=== PATIENT | female | born 2000 | race Two or more races ===

== ENCOUNTER 2023-07-13 11:38 | Outpatient (OUT) | payer OTHER, SELFPAY ==
--- NOTE | 2023-07-13 11:49 | XR_ITS ---
The [address] [address] Patient Name: HARMONY PA MRN: [id number] date: 2000 Sex: F Assigned Patient Location: [facility] Current Patient Location: [facility] Accession/Order Number: [id number] Exam Date: 07/13/2023 11:55 Report Date: 07/13/2023 15:13 At the request of: AGATHA STEEL Procedure: XR knee RT 4V EXAM: XR knee RT 4V 07/13/2023. FINDINGS: AP, lateral, oblique, and sunrise type views were obtained. HISTORY: Right Knee Contusion COMPARISON: None. XR/XR knee RT 4V IMPRESSION: 1. The alignment is satisfactory and joint spaces are well-maintained. There is no obvious effusion, pathologic calcification, or radiopaque foreign body. 2. No acute fracture or dislocation noted. Electronically authenticated by: ISSAC HOWE Date: 07/13/2023 15:13
== END 2023-07-13 11:39 | disposition home or self-care (01) ==
LOC: RAD 11:44
PROVIDERS: Visit Provider Nurse Practitioner Family
DX: S80.01XA Contusion of right knee, initial encounter (principal)
CPT/HCPCS: 73564

== ENCOUNTER 2023-08-01 10:41 | Emergency (ER) | payer OTHER, SELFPAY ==
[2023-08-01 10:44] VITALS: BP 118/81; PULSE 88; TEMP 36.5; O2SAT 100; BMI 25.3
--- NOTE | 2023-08-01 10:51 | ED_ITS ---
HPI - Extremity Problem General Chief complaint: Extremity Problem, Nontraumatic Stated complaint: UPPER EXTREMITY PAIN Time Seen by Provider: 08/01/23 10:49 Source: patient Mode of arrival: walk-in History of Present Illness HPI Narrative: 22-year-old female presents for pain in her left thumb. She gives no history of injury but noted some redness at the base of her nail. She states she does not bite her nails. The pain is moderate and continuous. Related Data Home Medications ?Medication ?Instructions ?Recorded ?Confirmed L norgest/E estradiol-E estrad 1 tab PO DAILY 08/01/23 08/01/23 0.15 mg-30 mcg (84)/10 mcg(7) tabs,3mos (Jaimiess) Previous Rx's ?Medication ?Instructions ?Recorded cephalexin 500 mg capsule 500 mg PO QID 10 days #40 caps 08/01/23 sulfamethoxazole 800 1 tab PO BID 10 days #20 tabs 08/01/23 mg-trimethoprim 160 mg tablet (Bactrim DS) Allergies Allergy/AdvReac Type Severity Reaction Status Date / Time No Known Drug Allergies Allergy Verified 08/01/23 10:46 Review of Systems ROS Narrative A ten point review of systems is negative except as noted above. Exam Narrative Exam Narrative: Nurses note and vital signs reviewed and patient is not hypoxic. General: The patient appears well and in no apparent distress. Patient is resting comfortably on cart. Skin: Warm, dry, no pallor noted. There is no rash noted. Head: Normocephalic, atraumatic Eye: Normal conjunctiva, no drainage Ears, Nose, Mouth, and Throat: oral mucosa is moist. Nares patent. Cardiovascular: Regular Rate and Rhythm Respiratory: Patient is in no distress, no accessory muscle use, lungs are clear to auscultation, no wheezing, rales or rhonchi Back: non-tender GI: Soft and nontender Musculoskeletal: No erythema or swelling to the finger pad. She has erythema at the eponychium area but there is no discrete paronychia. No fluctuance. Neurological: A&O, normal speech Psychiatric: Cooperative Constitutional Vital Signs, click to edit/add: Last Vital Signs Temp 97.7 F 08/01/23 10:44 Pulse 88 08/01/23 10:44 Resp 16 08/01/23 10:44 BP 118/81 08/01/23 10:44 Pulse Ox 100 08/01/23 10:44 O2 Del Method Room Air 08/01/23 10:44 Course Vital Signs Vital signs: Vital Signs Temperature 97.7 F 08/01/23 10:44 Pulse Rate 88 08/01/23 10:44 Respiratory Rate 16 08/01/23 10:44 Blood Pressure 118/81 08/01/23 10:44 Pulse Oximetry 100 08/01/23 10:44 Oxygen Delivery Method Room Air 08/01/23 10:44 Temperature 97.7 F 08/01/23 10:44 Pulse Rate 88 08/01/23 10:44 Respiratory Rate 16 08/01/23 10:44 Blood Pressure 118/81 08/01/23 10:44 Pulse Oximetry 100 08/01/23 10:44 Oxygen Delivery Method Room Air 08/01/23 10:44 MDM - Extremity (Nontraumatic) MDM Narrative Medical decision making narrative: X-ray per radiologist shows no acute findings. No evidence of felon or paronychia on exam and she is prescribed Bactrim and Keflex. Treatment diagnosis and follow-up were discussed with the patient. Differential Diagnosis Differential diagnosis: Likely other (Felon, paronychia, cellulitis) Imaging Data Hand x-ray: Radiologist's impression: ITS Impressions Hand X-Ray 08/01/23 10:51 IMPRESSION: Left hand study fails to demonstrate obvious acute bony abnormality. Mild soft tissue swelling of the thumb. Follow-up as needed. Electronically authenticated by: UMBERTO CONNER Date: 08/01/2023 11:49 Discharge Plan Discharge Stand Alone Forms: Portal Instructions Chief Complaint: Extremity Problem, Nontraumatic Clinical Impression: Cellulitis Patient Disposition: Home, Self-Care Time of Disposition Decision: 12:04 Condition: Good Mode of Transportation: Private Vehicle Prescriptions / Home Meds: New sulfamethoxazole-trimethoprim [Bactrim DS] 800-160 mg tablet 1 tab PO BID 10 Days Qty: 20 0RF cephalexin 500 mg capsule 500 mg PO QID 10 Days Qty: 40 0RF No Action L norgest/e.estradiol-e.estrad [Jaimiess] 0.15 mg-30 mcg (84)/10 mcg (7) tablets,dose pack,3 month 1 tab PO DAILY Print Language: Armenian Instructions: Cellulitis (ED), Warm Compress or Soak (ED) Referrals: Physician,Non-Staff, MD [Primary Care Provider] - 1 week
--- NOTE | 2023-08-01 10:51 | XR_ITS ---
The [place] [id number] Patient Name: HARMONY PA MRN: [id number] date: 2000 Sex: F Assigned Patient Location: ER Current Patient Location: ER Accession/Order Number: [id number] Exam Date: 08/01/2023 11:20 Report Date: 08/01/2023 11:49 At the request of: BRENT JIMENEZ Procedure: XR hand LT min 3V EXAM: XR hand LT min 3V HISTORY: Attention thumb, atraumatic pain COMPARISON: None TECHNIQUE: 3 views of the left hand were obtained. FINDINGS: No definite acute fracture or dislocation. Focal area of sclerosis in the third metacarpal head compatible with a bone island. Mild soft tissue swelling of the thumb. No obvious opaque foreign body. XR/XR hand LT min 3V IMPRESSION: Left hand study fails to demonstrate obvious acute bony abnormality. Mild soft tissue swelling of the thumb. Follow-up as needed. Electronically authenticated by: UMBERTO CONNER Date: 08/01/2023 11:49
== END 2023-08-01 12:16 | disposition home or self-care (01) ==
PROVIDERS: Emergency Provider Emergency Medicine
DX: L03.012 Cellulitis of left finger (principal); Z79.3 Long term (current) use of hormonal contraceptives
CPT/HCPCS: 73130; 99283

== ENCOUNTER → 2023-09-19 16:01 | Emergency (ER) | payer OTHER, SELFPAY | END | disposition left against medical advice (07) | PROVIDERS: Emergency Provider Emergency Medicine Emergency Medical Services | DX: Z53.21 Procedure and treatment not carried out due to patient leaving prior to being seen by health care provider (principal) ==

== ENCOUNTER 2024-10-24 00:13 | Emergency (ER) | payer OTHER, SELFPAY ==
--- OUTSIDE RECORDS SUMMARY | 2023-04-29 06:00 | XMS_ITS | Continuity of Care Document ---
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 Phone Lian KAREN, Garo Unavailable Unavailable Allergies, Adverse Reactions, Alerts Substance Reaction Status Criticality No Known Allergies Active No Inform ation Procedures Procedure Date Panoramic Film Limited Oral Eval Oral Hygiene Instruction Advance Directives Directive Yes / No Effective Date File Name No Information Encounters Encounter Description Practice Location Reason(s) For Visit Diagnoses Date Provider Providers Copied on Encounter [facility], [address] [place], [place], [id number], [place] tel:[phone] [facility] ER (chief complaint) Encounter for screening for dental disorders Lian JONES Garo. [address] [place], [place], [id number], [place]. tel:[phone] Family History Family Member Type Diagnosis Age At Onset No Information Payers Payer name Insurance type Covered democrat ID Niamat nitzarussell(s) Self Pay Indigent 09 [id number] Social History Type Description Quantity Date Captured Comments Alcohol Use Details Unknown Caffeine Use Details Unknown Tobacco Use Status Light cigarette smok er (1-9 cigs/day) Smoking Status Light tobacco smoker Smoking Tobacco Use Details Cigarette: No Details Available Cigarette: 5 Cigarettes per day Sex Female Sexual Orientation Straight or heterosexual Gender Identity Female Vital Signs Date / Time: Height Weight BMI Pulse Rate Blood Pressure Temperature Respiratory Rate Body Surface Area Head Circumference Head Circ. Percentile Wt./Eliel. Percentile BMI percentile Pulse Ox Inhaled Ox 10:25 AM 106 /min 124/83 mm[Hg] 97.50 F Chief Complaint And Reason For Visit From encounter dated '04/29/2023 10:00'. ER (chief complaint) Reason For Referral Reason For Referral No Information Plan Of Treatment Date Type Action Status Goal Tdap. Due on due Goal Hepatitis C screening. Due o n due Goal Tdap Vaccine. Due on 2023 due Goal Influenza vaccine. Due on due Goal PRAPARE ASSESSMENT. Due on due Goal PAP. Due on due Goal RLP. Due on due Goal Depression screening. Due on due Goal Unhealthy drug use screening . Due on due History Of Present Illness Encounter Date Complaint History Of Prese nt Illness ER Functional Status Date Functional Assessmen t No Information Instructions Date Instruction Additional Infor mation No Information Assessments Type Assessment Date No Information Patient Care Teams Name Effective Dates (start - stop) Status Members No Information
[2024-10-24 00:36] VITALS: BP 123/74; PULSE 80; TEMP 36.9; O2SAT 100; BMI 25.0
[2024-10-24 00:52] LABS: HCG Qualitative Urine* NEGATIVE (NEGATIVE)
[2024-10-24 00:57] LABS: Glucose Urine UA NEGATIVE (NEGATIVE)
[2024-10-24 01:04] LABS: Cast Seen? NONE SEEN #/LPF (NONE SEEN); Crystals Seen? None Seen #/HPF (None Seen); Urine Culture Indicated NO
== END 2024-10-24 01:22 | disposition left against medical advice (07) ==
PROVIDERS: Emergency Provider Emergency Medicine
DX: R10.9 Unspecified abdominal pain (principal); Z53.21 Procedure and treatment not carried out due to patient leaving prior to being seen by health care provider
CPT/HCPCS: 81001; 84703; 99281